=== PATIENT | male | born 1955 | race Caucasian/White ===

== ENCOUNTER 2018-08-28 09:16 | Emergency (ER) | payer BC ==
[~2018-08-28] VITALS: Ht 175.3 cm; Wt 114.1 kg
[~2018-08-28 09:16] MED LIST: ACETAMINOPHEN PO; FLO4 PO; HYDROCODONE PO; LOR PO
[2018-08-28 09:27] VITALS: Ht 175.3 cm; Wt 114.1 kg
[2018-08-28 11:45] LABS: BASOPHIL % 0.6 % (0-2); PLATELET COUNT 279 x10^3mcL (130-400); RED CELL DISTRIBUTION WIDTH 13.3 % (11.5-14.5)
[2018-08-28 11:48] LABS: CALCIUM 9.1 mg/dL (8.5-10.1); CARBON DIOXIDE 23.3 mmol/L (21-32); CHLORIDE SERUM 105 mmol/L (98-107); CREATININE SERUM 1.1 mg/dL (0.7-1.3); GFR1 > 60 mL/min; GLUCOSE SERUM 127 mg/dL (74-106); POTASSIUM SERUM 4.3 mmol/L (3.5-5.1); SODIUM SERUM 139 mmol/L (136-145)
[2018-08-28 13:00] VITALS: BP 132/70
== END 2018-08-28 13:00 | disposition home or self-care (01) ==
LOC: ED 09:16
PROVIDERS: Emergency Medicine
DX: R33.9 Retention of urine, unspecified (principal); Z87.442 Personal history of urinary calculi
CPT/HCPCS: 76770; J2270; J2405; Q0092

== ENCOUNTER 2020-10-11 11:33 | Inpatient (IN) | payer OTHER ==
[~2020-10-11] VITALS: Ht 177.8 cm; Wt 114.3 kg
[2020-10-11 13:19] LABS: BASOPHIL % 0.8 % (0.2-1.5); PLATELET COUNT 265 x10^3mcL (152-348); RED CELL DISTRIBUTION WIDTH 13.8 % (12.1-16.2)
[2020-10-11 13:26] LABS: CALCIUM 8.9 mg/dL (8.5-10.1); CARBON DIOXIDE 22.5 mmol/L (21-32); CHLORIDE SERUM 104 mmol/L (98-107); CREATININE SERUM 1.1 mg/dL (0.7-1.3); GFR1 > 60 mL/min; GLUCOSE SERUM 132 mg/dL (74-106); POTASSIUM SERUM 3.9 mmol/L (3.5-5.1); SODIUM SERUM 138 mmol/L (136-145)
[2020-10-11 13:31] LABS: ALKALINE PHOSPHATASE 109 U/L (46-116); ALT/SGPT 41 U/L (16-63); AST/SGOT 30 U/L (15-37); BILIRUBIN TOTAL 0.53 mg/dL (0.20-1.00)
[2020-10-11 15:08] LABS: microscopic required? YES
[2020-10-11 15:12] LABS: urine erythrocyte 3+ (NEGATIVE)
[2020-10-11 17:55] VITALS: BP 151/78
[2020-10-11 18:27] VITALS: BP 151/78
[2020-10-12 05:18] VITALS: BP 116/77
[2020-10-12 06:21] LABS: CALCIUM 8.6 mg/dL (8.5-10.1); CARBON DIOXIDE 25.9 mmol/L (21-32); CHLORIDE SERUM 100 mmol/L (98-107); CREATININE SERUM 1.2 mg/dL (0.7-1.3); GFR1 > 60 mL/min; GLUCOSE SERUM 141 mg/dL (74-106); POTASSIUM SERUM 4.6 mmol/L (3.5-5.1); SODIUM SERUM 135 mmol/L (136-145)
[2020-10-12 07:05] LABS: BASOPHIL % 0.2 % (0.2-1.5)
[2020-10-12 07:10] LABS: RED CELL DISTRIBUTION WIDTH 13.7 % (12.1-16.2)
[2020-10-12 07:33] LABS: PLATELET COUNT 75 x10^3mcL (152-348)
[2020-10-12 08:28] VITALS: BP 102/62
[2020-10-12 11:42] VITALS: BP 115/73
[2020-10-12 13:52] VITALS: BP 115/73
== END 2020-10-12 15:09 | disposition home or self-care (01) | DRG 713 ==
LOC: ED 11:33 → DU 14:39
PROVIDERS: Specialist; Urology; ADMIT Internal Medicine; ATTEND Internal Medicine
PROC: 0V508ZZ Destruction of Prostate, Via Natural or Artificial Opening Endoscopic (ICD-10-PCS; 2020-10-11)
PROC: 0TCB8ZZ Extirpation of Matter from Bladder, Via Natural or Artificial Opening Endoscopic (ICD-10-PCS; principal; 2020-10-11 20:00)
DX: N40.1 Benign prostatic hyperplasia with lower urinary tract symptoms (principal); N39.0 Urinary tract infection, site not specified; Z20.822 Contact with and (suspected) exposure to COVID-19; E66.9 Obesity, unspecified; R33.9 Retention of urine, unspecified; N13.9 Obstructive and reflux uropathy, unspecified; R31.0 Gross hematuria; Z90.49 Acquired absence of other specified parts of digestive tract; Z90.89 Acquired absence of other organs; Z79.899 Other long term (current) drug therapy
CPT/HCPCS: 76770; G0378; J1885; J1956; J2270; J2405; J2704; J3010; J7040; J7120; U0003